=== PATIENT | female | born 1945 | race Caucasian/White ===

== ENCOUNTER 2024-09-29 08:24 | Emergency (ER) | payer MEDICARE, MEDICAID, SELFPAY ==
[2024-09-29 08:26] VITALS: BP 147/68; PULSE 78; RESP 16; TEMP 36.9; O2SAT 97; BMI 19.1
--- NOTE | 2024-09-29 08:42 | CT_ITS ---
INDICATION: swelling, difficulty swallowing, anterior erythema EXAMINATION: CT NECK WITH CONTRAST - CT Soft Tissue Neck W/ Contrast Injection TECHNIQUE: Helically acquired images were obtained of the neck following IV contrast. The protocol utilizes one or more of the following dose reduction techniques: automated exposure control, adjustment of mA and/or kV according to patient size,and/or use of iterative reconstruction technique. IV Contrast dosage and agent: 75 cc of Isovue-370 RADIATION DOSAGE (If Supplied By Facility): CTDIvol = ( 9.11 ) mGy, DLP = ( 241.25 ) mGycm COMPARISON: No relevant prior comparison study available FINDINGS: NASOPHARYNX: Unremarkable. SUPRAHYOID NECK: Unremarkable oropharynx, oral cavity, parapharyngeal space, and retropharyngeal space. INFRAHYOID NECK: Unremarkable larynx, hypopharynx, and supraglottis. THYROID: No focal lesions. SALIVARY GLANDS: Unremarkable. LYMPH NODES: No cervical or supraclavicular lymphadenopathy. VASCULAR STRUCTURES: Unremarkable. VISUALIZED PORTIONS OF THE ORBITS, PARANASAL SINUSES, MASTOID AIR CELLS AND SKULL BASE: Unremarkable. BONES: Degenerative changes of the cervical spine. THORACIC INLET: Clear lung apices. CT/Soft Tissue Neck WITH Contrast IMPRESSION: No significant abnormality is seen. Electronically Signed: Harrison Barnard MD at 10:27 [facility] ,
--- NOTE | 2024-09-29 08:43 | EKG12_ITS ---
Test Reason : NECK PAIN Blood Pressure : */* mmHG Vent. Rate : 73 BPM Atrial Rate : 73 BPM P-R Int : 144 ms QRS Dur : 76 ms QT Int : 394 ms P-R-T Axes : 69 15 41 degrees QTcB Int : 434 ms Normal sinus rhythm Normal ECG Confirmed by MARTELL MERCADO, JUAN C ([id number]), market editor DARWIN SALAZAR ([id number]) on 10/01/2024 9:41:34 AM Referred By: Confirmed By: JUAN C MOURA MD
--- NOTE | 2024-09-29 08:46 | EX.ED.DYSGE1 ---
HPI History of Present Illness Chief Complaint: Other, Pain/Inj Narrative Narrative: 79-year-old female past medical history of hypertension, presents with her daughter because of difficulty swallowing, and swelling of her anterior neck. She denies any fevers or chills, no nausea or vomiting. Over the last few days, she has noticed that the area under her chin and in her anterior neck has been swollen. It feels tight. This morning she awoke, noticed redness to the area. Additionally, she was only able to drink about a fourth of her cup of coffee. She denies any exacerbating or alleviating symptoms but states that there is pain that radiates down into her chest, and up into her eyeballs. Denies problems with thyroid. PFSH PFSH Home Medications ?Medication ?Instructions ?Recorded ?Last Taken ?Type amoxicillin 875 mg-potassium 1 tab PO BID #20 tabs 09/29/24 Unknown Rx clavulanate 125 mg tablet tramadol 50 mg tablet 50 mg PO Q6H PRN pain 3 days #12 09/29/24 Unknown Rx tabs Allergy/AdvReac Type Severity Reaction Status Date / Time No Known Allergies Allergy Verified 09/29/24 08:26 Social History Smoking Status: Never smoker ROS ROS ED ROS Narrative Review of systems positive for anterior neck swelling and tenderness. Awoke this morning and noticed redness to the area. Radiation of pain upward and down into chest. No shortness of breath, no recent fevers or chills. Positive odynophagia and difficulty swallowing. EXAM Physical Exam Narrative Exam Narrative: Afebrile. Vital signs noted. Nontoxic-appearing. Regular rate and rhythm. Lungs are clear to auscultation bilaterally. Abdomen soft nontender with normal active bowel sounds. Neurological examination nonfocal and nonlateralizing. During the HEENT examination, on closer inspection there is mild tenderness and swelling with erythema to the anterior neck diffusely over the area of the thyroid. There is no fluctuance noted. Neck is soft and supple otherwise. Airway patent. No drooling or trismus. No noted angioedema under tongue or of tongue. Const Vital Signs: 09/29/24 08:26 09/29/24 10:25 09/29/24 11:53 Temperature 98.4 F 98.2 F Temperature Source Oral Pulse Rate 78 70 78 Respiratory Rate 16 18 19 H Blood Pressure 147/68 H 147/93 H 148/92 H Blood Pressure Mean 94 111 110 Pulse Ox 97 97 97 Oxygen Delivery Method Room Air Room Air MDM MDM MDM Narrative Medical decision making narrative: Differential diagnosis includes but not limited to thyroid abscess versus thyroid mass versus cellulitis. Comprehensive workup was pursued. We do feel CT imaging is indicated. Basic laboratory work will be drawn as well including CBC, CMP, and TSH. I did order an EKG and a single troponin as patient mentioned that she was having chest pain last evening and went to bed early. This was greater than 6 hours ago. EKG obtained and interpreted by myself independently as normal sinus rhythm at 73 bpm without ectopy or acute ST changes. No STEMI. I reviewed her laboratory work and she has slight leukocytosis of 14.7 with hemoglobin 13.1, platelet count normal at 315. Slight left shift with neutrophil count of 79. There are 13.1 monocytes as well. Potassium slightly low at 3.2 which was replaced orally after CT obtained of the soft tissue neck. I reviewed the radiology report of the CT of the neck and there is no acute process. TSH is normal on laboratory review. As there is no airway compromise, or noted thyroid abscess, I feel she can be discharged to follow-up with her primary care provider. She states she had redness to her neck without touching the area, noticed it when she awoke this morning. She is motivated for discharge. She was given a dose of Rocephin intravenously here and prescription written for Augmentin and Ultram. She had been given a dose of narcotic pain medication here. I feel she can be discharged to follow-up with her primary care provider. Strict return instructions were reviewed. Patient and daughter agreeable to the plan. Disposition is discharged home in stable condition. History & Record Review Discussion w/independent historian: Patient and Family Lab Data Attestation: I reviewed the patient's lab results. Labs: Laboratory Results - last 24 hr 09/29/24 08:52 WBC 14.7 H RBC 4.35 Hgb 13.1 Hct 38.9 MCV 89.4 MCH 30.1 MCHC 33.7 RDW Std Deviation 43.1 RDW Coeff of Sophia 13.2 Plt Count 315 MPV 10.0 Immature Gran % (Auto) 0.300 Neut % (Auto) 79.0 H Lymph % (Auto) 6.4 L Jackson % (Auto) 13.1 H Eos % (Auto) 0.7 Baso % (Auto) 0.5 Absolute Neuts (auto) 11.6 H Absolute Lymphs (auto) 0.94 Nucleated RBC % 0 Differential Comment SCANNED Diff Path Review May foll Platelet Estimate ADEQUATE RBC Morphology NORM C+C Sodium 140 Potassium 3.2 L Chloride 107 Carbon Dioxide 29.0 Anion Gap 4 L BUN 11 Creatinine 0.76 Estim Creat Clear Calc 45.42 Est GFR (MDRD) Af Amer 94 Est GFR (MDRD) Non-Af 78 BUN/Creatinine Ratio 14.5 Glucose 118 H Calcium 8.7 Total Bilirubin 0.80 AST 13 L ALT 13 Alkaline Phosphatase 59 Troponin I High Sens 4 Total Protein 6.9 Albumin 3.3 Globulin 3.6 Albumin/Globulin Ratio 0.9 TSH 1.330 Radiography Diagnostic Testing: Clinical Impression(s) from Imaging Studies Soft Tissue Neck CT 09/29/24 08:42 IMPRESSION: No significant abnormality is seen. Electronically Signed: Harrison Barnard MD at 10:27 EST , Discharge Plan Triage Chief Complaint: Other, Pain/Inj ED Provider: Griffin Cisneros Dx/Rx/DC Orders Clinical Impression: Cellulitis of neck, Pain aggravated by swallowing, Hypokalemia Instructions: ED Cellulitis, ED Hypokalemia Prescriptions: New amoxicillin-pot clavulanate 875-125 mg tablet 1 tab PO BID Qty: 20 0RF tramadol 50 mg tablet 50 mg PO Q6H PRN (Reason: pain) 3 Days Qty: 12 0RF Primary Care Provider: Guerita Paz Referrals: Guerita Paz DO [Primary Care Provider] - 3-5 Days Activity Restrictions/Additional Instructions: Return with increased difficulty swallowing, fever, increased redness to your neck, new or worsening symptoms. Otherwise, follow-up with your primary care provider in the next 3 to 5 days. Take antibiotics as directed. Print Language: Latvian Disposition Disposition: Home, Self Care
[2024-09-29 09:00] LABS: Absolute Lymphocyte Count 0.94 X10^3/uL (0.83-4.51); Absolute Neutrophil Count 11.6 X10^3/uL (2.0-7.7); Basophil# 0.07 X10^3/uL; Basophil% 0.5 % (0-1); Eosinophils% 0.7 % (0-5); Hematocrit 38.9 % (37-47); Hemoglobin 13.1 g/dL (12.0-15.0); Lymphocyte # 0.94 X10^3/ul (0.83-4.51); Lymphocyte % 6.4 % (19-41); Mean Corp Hgb Conc 33.7 g/dL (32-36); Mean Corpuscular Hgb 30.1 pg (27.0-32.0); Mean Corpuscular Volume 89.4 fL (81-99); Monocyte# 1.93 X10^3/uL; Monocyte% 13.1 % (0-10); NRBC Flagged by Analyzer 0 % (0-5); Neutrophil # 11.61 X10^3/uL (2.7-7.7); POSITIVE DIFFERENTIAL YES; Platelet Count 315 K/mm3 (150-450); RBC Distribution Width CV 13.2 % (11.6-14.6); RBC Distribution Width SD 43.1 fl (35.1-43.9); Red Blood Count 4.35 M/mm3 (4.2-5.4); White Blood Count 14.7 K/mm3 (4.4-11.0)
[2024-09-29 09:20] LABS: Differential Indicated SCAN CRITERIA MET
[2024-09-29 09:24] LABS: ALB/GLOB Ratio 0.9 RATIO (0.9-2.4); AST(SGOT) 13 U/L (15-37); Alanine Aminotransfer ALT/SGPT 13 U/L (13-56); Albumin, Serum 3.3 g/dL (3.2-5.0); Alkaline Phosphatase 59 U/L (45-117); Anion Gap 4 (5-15); BUN 11 mg/dL (7-18); BUN/Creat Ratio 14.5 RATIO (10-20); Calcium,Total 8.7 mg/dL (8.5-10.1); Chloride 107 mmol/L (98-107); Creatinine, Serum 0.76 mg/dL (0.55-1.02); EST Glomerular Filtration Rate 78 mL/min (>60); Est Glom Filt Rate - Afr Amer 94 mL/min (>60); Estimated Creatinine Clearance 45.42 ml/min; Globulin 3.6 g/dL (2.2-4.2); Glucose 118 mg/dL (74-106); Potassium 3.2 mmol/L (3.5-5.1); Protein, Total 6.9 g/dL (6.4-8.2); Sodium Level 140 mmol/L (136-145); Troponin-I HS 4 pg/mL (3.0-54.0)
[2024-09-29 10:06] LABS: Differential Comment SCANNED; Platelet Estimate ADEQUATE (ADEQ); Red Cell Morphology NORM C+C NORMAL (NORM C&C)
[2024-09-29] MEDS: Ondansetron 4 MG/2 ML Vial IV (10:23)
[2024-09-29] MEDS: Morphine 4 MG/ML Syringe IV (10:23)
[2024-09-29 10:25] VITALS: BP 147/93; PULSE 70; RESP 18; O2SAT 97
[2024-09-29] MEDS: Potassium Chloride Oral Soln 20 MEQ/15 ML UDC 40 MEQ PO (10:57)
[2024-09-29] MEDS: Ceftriaxone 1 GM/50 ML BAG IV (10:57)
[2024-09-29 11:53] VITALS: BP 148/92; PULSE 78; RESP 19; TEMP 36.8; O2SAT 97
[2024-10-01 14:09] LABS: Pathologist Review Reviewed
== END 2024-09-29 12:13 | disposition home or self-care (01) ==
PROVIDERS: Emergency Provider Emergency Medicine; PCP Family Medicine; Visit Provider Emergency Medicine
DX: L03.221 Cellulitis of neck (principal); E87.6 Hypokalemia
CPT/HCPCS: 70491; 80053; 84443; 84484; 85025; 93005; 96365; 96375; 96376; 99282; J7040; Q9967; A4216; J2405